=== PATIENT | male | born 1995 | race African-American/Black ===

== ENCOUNTER 2018-10-05 19:25 | Emergency (ER) | payer BC ==
--- NOTE | 2018-10-05 20:30 | ER ---
DATE SEEN: 10/05/2018 REASON FOR VISIT: Lightheadedness. HISTORY OF PRESENT ILLNESS: This is a 23-year-old male who had left varicocele repair earlier this week, but complained of pain and swelling for which he was seen again today. He was given some oxycodone. He did some lab work that was reportedly negative. He was advised to go to the ER if he feels lightheaded. He had felt some lightheadedness tonight and wanted to make sure that everything is fine. No chest pain or shortness of breath. SOCIAL HISTORY: Noncontributory. REVIEW OF SYSTEMS: All other systems negative. PHYSICAL EXAMINATION: VITAL SIGNS: Temperature 97.6, pulse is 75, and blood pressure is normal. ABDOMEN: Soft. CHEST: Clear. CARDIOVASCULAR: Normal. GENITALIA: He has extensive swelling around the left inguinal area with marked edema of the scrotum and penile shaft. IMPRESSION: Hematoma of the inguinal area. PLAN: Vital signs have remained stable. I did not feel that he is in danger of anemia. I advised him to ice the area and take his pain pills. Follow up with the surgeon on Sunday. /[id number] 2015 2022 ROSEY/KEE
== END 2018-10-05 20:19 | disposition home or self-care (01) ==
LOC: FB.ED 19:25
DX: M79.81 Nontraumatic hematoma of soft tissue (principal)
CPT/HCPCS: 99282